=== PATIENT | male | born 1945 | race Caucasian/White ===

== ENCOUNTER → 2016-09-05 | Outpatient (CLI) | payer MEDICARE ==
[2015-10-23 11:10] VITALS: BP 136/84
[~2016-09-05] MED LIST: AMILORIDE HCL/H1 TAB PO; ASPIRIN E.C. 8181 MG PO; CHOLESTYRAM4 GM/5 GM PO; CYCLOBENZAPRINE10 M1 PO; DIFLUCAN200 M1 PO; FLOMAX0.4 MG PO; FORADIL INH; GABAPENTIN300 MG PO; LIPITOR20 MG PO; METOPROLOL TART25 MG PO; NORCO 325 MG-101 TAB PO; OMEPRAZOLE40 MG PO; OXY IH; PROVENTIL0.09 MG/A1; SYMBICORT1 AE3 IH; TUSSIONEX PENN115 ML PO
== END ==
LOC: RAD 14:26
DX: R07.1 Chest pain on breathing (principal); M54.5 Low back pain

== ENCOUNTER → 2016-10-10 | Outpatient (CLI) | payer MEDICARE ==
[2015-10-23 11:10] VITALS: BP 136/84
== END ==
LOC: RAD 14:54
DX: R05 Cough (principal); R51 Headache

== ENCOUNTER → 2016-10-21 | Outpatient (CLI) | payer MEDICARE ==
[2015-10-23 11:10] VITALS: BP 136/84
== END ==
LOC: LAB 14:26
DX: R06.02 Shortness of breath (principal)

== ENCOUNTER 2016-10-25 17:00 | Emergency (ER) | payer MEDICARE ==
[~2016-10-25] VITALS: Ht 172.7 cm; Wt 97.5 kg
[~2016-10-25 17:00] MED LIST changes: -ASPIRIN E.C. 8181 MG PO; -CYCLOBENZAPRINE10 M1 PO; -DIFLUCAN200 M1 PO; -SYMBICORT1 AE3 IH; -TUSSIONEX PENN115 ML PO
[2016-10-25] MEDS ORDERED: SYMBICORT1 AE3 IH (17:16)
[2016-10-25] MEDS ORDERED: ASPIRIN E.C. 8181 MG PO (17:16)
[2016-10-25] MEDS ORDERED: CYCLOBENZAPRINE10 M1 PO (21:19)
[2016-10-25] MEDS ORDERED: TUSSIONEX PENN115 ML PO (21:19)
[2016-10-25] MEDS ORDERED: DIFLUCAN200 M1 PO (21:19)
[2016-10-25 21:33] VITALS: BP 121/63
== END 2016-10-25 21:33 | disposition home or self-care (01) ==
LOC: ED 17:00
DX: R07.89 Other chest pain (principal); W19.XXXA Unspecified fall, initial encounter; B88.8 Other specified infestations; S16.1XXA Strain of muscle, fascia and tendon at neck level, initial encounter; R51 Headache; I10 Essential (primary) hypertension; J44.9 Chronic obstructive pulmonary disease, unspecified; J20.9 Acute bronchitis, unspecified; Z85.46 Personal history of malignant neoplasm of prostate; Z87.891 Personal history of nicotine dependence; K21.9 Gastro-esophageal reflux disease without esophagitis; J42 Unspecified chronic bronchitis
CPT/HCPCS: J1885; J7030

== ENCOUNTER 2016-11-17 16:00 | Outpatient (RCR) | payer MEDICARE ==
[~2016-11-17 16:00] MED LIST changes: +ASPIRIN E.C. 8181 MG PO; +CYCLOBENZAPRINE10 M1 PO; +DIFLUCAN200 M1 PO; +SYMBICORT1 AE3 IH; +TUSSIONEX PENN115 ML PO
== END 2016-12-20 13:30 | disposition home or self-care (01) ==
LOC: PT 16:00
DX: M54.6 Pain in thoracic spine (principal)

== ENCOUNTER → 2016-11-21 | Outpatient (CLI) | payer MEDICARE ==
[2016-10-25 21:33] VITALS: BP 121/63
== END ==
LOC: LAB 17:57
DX: R23.8 Other skin changes (principal)

== ENCOUNTER 2017-03-23 11:05 | Inpatient (IN) | payer MEDICARE ==
[~2017-03-23] VITALS: Ht 172.7 cm; Wt 95.6 kg
[~2017-03-23 11:05] MED LIST changes: +ACETAMINOPHEN-H1 TA1 PO; +ATIVAN 2MG2 MG PO; +ATORVASTATIN CA20 MG PO; +COLESTID 1GM1 G PO; +LOPRESSOR 225 MG/TAB PO; -METOPROLOL TART25 MG PO; +MODURETIC 5/501 TA1 PO; +NEURONTIN300 MG/CAP PO; +PROAIR HFA0.09 MG/AC IH
[2017-03-23 11:11] VITALS: BP 145/71
[2017-03-23 18:03] VITALS: BP 105/50
[2017-03-24 06:34] VITALS: BP 116/65
[2017-03-24 17:55] VITALS: BP 132/65
[2017-03-25 05:59] VITALS: BP 105/50
[2017-03-25 18:25] VITALS: BP 124/64
[2017-03-26 06:07] VITALS: BP 102/56
[2017-03-26 18:07] VITALS: BP 128/65
[2017-03-27 06:33] VITALS: BP 120/67
[2017-03-27 18:26] VITALS: BP 126/67
[2017-03-27 20:27] LABS: TROPONIN-I < 0.03 ng/mL (0.00-0.06)
[2017-03-27 20:31] LABS: CKMB ISOENZYME 0.2 ng/mL (0.6-3.5)
[2017-03-28 06:22] VITALS: BP 117/76
[2017-03-28 18:22] VITALS: BP 128/65
[2017-03-29 06:29] VITALS: BP 115/66
[2017-03-29 17:55] VITALS: BP 103/60
[2017-03-29 19:05] VITALS: BP 103/60
[2017-03-30 06:26] VITALS: BP 103/56
[2017-03-30] MEDS ORDERED: CEFDINIR300 MG PO (11:32)
[2017-03-30] MEDS ORDERED: IPRATROPIUM BROM3 M1 IH (11:33)
[2017-03-30] MEDS ORDERED: ALBUTEROL2.5 MG/3 M IH (11:33)
[2017-03-30] MEDS ORDERED: PERFOROMIS20 MCG/2 M IH (11:34)
[2017-03-30] MEDS ORDERED: BUDESONIDE0.5 MG/2 M IH (11:35)
[2017-03-30 12:43] VITALS: BP 115/69
== END 2017-03-30 12:55 | disposition home or self-care (01) | DRG 195 ==
LOC: MED/SURG 11:05
PROVIDERS: Nurse Practitioner Primary Care; ADMIT Physician Assistant
DX: J18.9 Pneumonia, unspecified organism (principal); R53.81 Other malaise; K21.9 Gastro-esophageal reflux disease without esophagitis; I10 Essential (primary) hypertension; G47.33 Obstructive sleep apnea (adult) (pediatric); G25.81 Restless legs syndrome; J43.9 Emphysema, unspecified; Z99.81 Dependence on supplemental oxygen
CPT/HCPCS: J0456; J0696; J1650; J7050

== ENCOUNTER 2017-06-16 17:26 | Emergency (ER) | payer MEDICARE ==
[~2017-06-16] VITALS: Wt 95.8 kg
[~2017-06-16 17:26] MED LIST changes: +ALBUTEROL2.5 MG/3 M IH; +BUDESONIDE0.5 MG/2 M IH; +CEFDINIR300 MG PO; +IPRATROPIUM BROM3 M1 IH; +PERFOROMIS20 MCG/2 M IH
[2017-06-16 18:21] LABS: HEMATOCRIT 41.3 % (42.0-52.0); HEMOGLOBIN 13.2 g/dL (13.5-18.0); MEAN CELL VOLUME 96 fl (78-100); MEAN CORPUSCULAR HEMOGLOBIN 31 pg (27-31); MEAN CORPUSCULAR HGB CONC 32 g/dL (33-37); MEAN PLATELET VOLUME 10.7 fl (7.4-10.4); PLATELET COUNT 141 K/mm3 (130-400); RED BLOOD COUNT 4.32 M/mm3 (4.20-5.60); RED CELL DISTRIBUTION WIDTH 14.8 % (11.5-14.5); WHITE BLOOD COUNT 3.7 K/mm3 (4.8-10.8)
[2017-06-16 18:31] LABS: ALBUMIN 4.4 g/dL (3.5-5.0); BUN/CREATININE RATIO 23.5 (6.0-26.0); CALCIUM 8.8 mg/dL (8.4-10.2); POTASSIUM 3.3 mmol/L (3.6-5.0); TOTAL BILIRUBIN 1.2 mg/dL (0.2-1.3); TOTAL PROTEIN 8.2 g/dL (6.3-8.2)
[2017-06-16 18:43] LABS: LYMPHOCYTE 26 % (20-51); MONOCYTE 9 % (3-10); NEUTROPHILS 62 % (42-75)
[2017-06-16] MEDS ORDERED: VALIUM 2MG T2 MG/TAB PO (18:46)
[2017-06-16] MEDS ORDERED: ZITHROMAX 250M250 MG PO (19:30)
[2017-06-16] MEDS ORDERED: PREDNISONE20 M1 PO (19:30)
[2017-06-16] MEDS ORDERED: POTASSIUM CHLO10 ME5 PO (19:36)
[2017-06-16 19:45] VITALS: BP 120/80
== END 2017-06-16 19:45 | disposition home or self-care (01) ==
LOC: ED 17:26
PROVIDERS: Family Medicine
DX: J44.1 Chronic obstructive pulmonary disease with (acute) exacerbation (principal); E87.6 Hypokalemia; I10 Essential (primary) hypertension; Z99.81 Dependence on supplemental oxygen; G47.30 Sleep apnea, unspecified; N40.0 Benign prostatic hyperplasia without lower urinary tract symptoms; Z87.891 Personal history of nicotine dependence; Z91.138 Patient's unintentional underdosing of medication regimen for other reason
CPT/HCPCS: J7512

== ENCOUNTER → 2017-06-23 | Outpatient (CLI) | payer MEDICARE ==
[2017-06-16 19:45] VITALS: BP 120/80
[~2017-06-23] MED LIST changes: +POTASSIUM CHLO10 ME5 PO; +PREDNISONE20 M1 PO; +VALIUM 2MG T2 MG/TAB PO; +ZITHROMAX 250M250 MG PO
[2017-06-23 10:14] LABS: BUN/CREATININE RATIO 26.6 (6.0-26.0); CALCIUM 9.5 mg/dL (8.4-10.2); POTASSIUM 3.7 mmol/L (3.6-5.0)
== END ==
LOC: LAB 09:40
PROVIDERS: Internal Medicine
DX: E11.9 Type 2 diabetes mellitus without complications (principal); I10 Essential (primary) hypertension

== ENCOUNTER → 2017-07-21 | Outpatient (CLI) | payer MEDICARE ==
[2017-07-21 17:12] LABS: BASO # 0.1 (0.02-0.10); EOS # 0.2 (0.04-0.40); EOS % 2.2 % (0.0-4.0); HEMATOCRIT 38.1 % (42.0-52.0); HEMOGLOBIN 11.8 g/dL (13.5-18.0); LYMPH# 1.4 (1.50-4.00); MEAN CELL VOLUME 99 fl (78-100); MEAN CORPUSCULAR HEMOGLOBIN 31 pg (27-31); MEAN CORPUSCULAR HGB CONC 31 g/dL (33-37); MEAN PLATELET VOLUME 10.7 fl (7.4-10.4); MONO # 0.8 (0.20-0.80); NEU # 5.2 (1.40-6.50); PLATELET COUNT 307 K/mm3 (130-400); RED BLOOD COUNT 3.86 M/mm3 (4.20-5.60); RED CELL DISTRIBUTION WIDTH 14.9 % (11.5-14.5); WHITE BLOOD COUNT 7.9 K/mm3 (4.8-10.8)
[2017-07-21 17:15] LABS: ALBUMIN 4.5 g/dL (3.5-5.0); CALCIUM 9.7 mg/dL (8.4-10.2); POTASSIUM 4.4 mmol/L (3.6-5.0); TOTAL BILIRUBIN 0.5 mg/dL (0.2-1.3); TOTAL PROTEIN 8.5 g/dL (6.3-8.2)
[2017-07-21 18:21] LABS: ERYTHROCYTE SEDIMENTATION RATE 67 mm/hr (0-20)
[2017-07-21 19:49] LABS: URINE APPEARANCE CLEAR; URINE BILIRUBIN NEGATIVE (NEGATIVE); URINE BLOOD NEGATIVE (NEGATIVE); URINE COLOR YELLOW; URINE GLUCOSE NEGATIVE (NEGATIVE); URINE KETONE NEGATIVE (NEGATIVE); URINE LEUKOCYTE ESTERASE NEGATIVE (NEGATIVE); URINE NITRATE NEGATIVE (NEGATIVE); URINE PROTEIN(semi-quant) NEGATIVE (NEGATIVE); URINE UROBILINOGEN NORMAL (NORMAL)
[2017-07-21 23:46] LABS: TESTOSTERONE 181 ng/dL (221-716)
== END ==
LOC: LAB 16:23
PROVIDERS: Internal Medicine
DX: E11.9 Type 2 diabetes mellitus without complications (principal); J45.909 Unspecified asthma, uncomplicated; E78.5 Hyperlipidemia, unspecified; E23.0 Hypopituitarism; D50.8 Other iron deficiency anemias; I25.10 Atherosclerotic heart disease of native coronary artery without angina pectoris; Z88.0 Allergy status to penicillin

== ENCOUNTER → 2017-10-27 | Outpatient (CLI) | payer MEDICARE ==
[2017-10-27 17:02] LABS: EOS # 0.2 (0.04-0.40); EOS % 2.5 % (0.0-4.0); HEMATOCRIT 40.6 % (42.0-52.0); HEMOGLOBIN 12.6 g/dL (13.5-18.0); LYMPH# 1.5 (1.50-4.00); MEAN CELL VOLUME 99 fl (78-100); MEAN CORPUSCULAR HEMOGLOBIN 31 pg (27-31); MEAN CORPUSCULAR HGB CONC 31 g/dL (33-37); MEAN PLATELET VOLUME 10.7 fl (7.4-10.4); MONO # 0.7 (0.20-0.80); NEU # 5.4 (1.40-6.50); PLATELET COUNT 184 K/mm3 (130-400); RED BLOOD COUNT 4.11 M/mm3 (4.20-5.60); RED CELL DISTRIBUTION WIDTH 14.4 % (11.5-14.5); WHITE BLOOD COUNT 7.7 K/mm3 (4.8-10.8)
[2017-10-27 17:16] LABS: ALBUMIN 4.6 g/dL (3.5-5.0); BUN/CREATININE RATIO 17.1 (6.0-26.0); CALCIUM 9.7 mg/dL (8.4-10.2); POTASSIUM 4.5 mmol/L (3.6-5.0); TOTAL BILIRUBIN 0.6 mg/dL (0.2-1.3); TOTAL PROTEIN 8.8 g/dL (6.3-8.2)
== END ==
LOC: LAB 16:48
PROVIDERS: Internal Medicine
DX: E11.9 Type 2 diabetes mellitus without complications (principal); I25.10 Atherosclerotic heart disease of native coronary artery without angina pectoris; G43.709 Chronic migraine without aura, not intractable, without status migrainosus

== ENCOUNTER → 2018-03-30 | Outpatient (CLI) | payer MEDICARE ==
[2018-03-30 12:34] LABS: ALBUMIN 4.3 g/dL (3.5-5.0); CALCIUM 9.6 mg/dL (8.4-10.2); POTASSIUM 4.5 mmol/L (3.6-5.0); TOTAL BILIRUBIN 0.6 mg/dL (0.2-1.3); TOTAL PROTEIN 7.6 g/dL (6.3-8.2)
[2018-03-30 13:38] LABS: EOS # 0.1 (0.04-0.40); EOS % 1.5 % (0.0-4.0); HEMATOCRIT 37.9 % (42.0-52.0); HEMOGLOBIN 11.8 g/dL (13.5-18.0); LYMPH# 1.6 (1.50-4.00); MEAN CELL VOLUME 101 fl (78-100); MEAN CORPUSCULAR HEMOGLOBIN 31 pg (27-31); MEAN CORPUSCULAR HGB CONC 31 g/dL (33-37); MONO # 0.6 (0.20-0.80); PLATELET COUNT 161 K/mm3 (130-400); RED BLOOD COUNT 3.77 M/mm3 (4.20-5.60); RED CELL DISTRIBUTION WIDTH 13.9 % (11.5-14.5); WHITE BLOOD COUNT 8.4 K/mm3 (4.8-10.8)
[2018-03-30 13:40] LABS: MEAN PLATELET VOLUME 12.1 fl (7.4-10.4)
== END ==
LOC: LAB 11:31
PROVIDERS: Internal Medicine
DX: E11.9 Type 2 diabetes mellitus without complications (principal); J43.1 Panlobular emphysema

== ENCOUNTER → 2018-04-12 | Outpatient (CLI) | payer MEDICARE ==
[~2018-04-12] VITALS: Ht 172.7 cm; Wt 100.0 kg
[~2018-04-12] MED LIST changes: +ATIVAN2 MG PO; +HYDROCODONE-AC118 ML PO; +HYDROCORT-PRAMOX4 GM RC; +LOMOTIL TAB 01 UDTAB; +TORSEMIDE10 M1 PO
[2018-04-12 14:30] VITALS: BP 155/75
[2018-04-12 14:49] LABS: EOS # 0.2 (0.04-0.40); EOS % 1.6 % (0.0-4.0); HEMOGLOBIN 12.1 g/dL (13.5-18.0); LYMPH# 1.8 (1.50-4.00); MEAN CELL VOLUME 100 fl (78-100); MEAN CORPUSCULAR HEMOGLOBIN 31 pg (27-31); MEAN CORPUSCULAR HGB CONC 31 g/dL (33-37); MEAN PLATELET VOLUME 11.6 fl (7.4-10.4); MONO # 0.7 (0.20-0.80); NEU # 6.5 (1.40-6.50); PLATELET COUNT 161 K/mm3 (130-400); RED BLOOD COUNT 3.92 M/mm3 (4.20-5.60); RED CELL DISTRIBUTION WIDTH 13.8 % (11.5-14.5); WHITE BLOOD COUNT 9.3 K/mm3 (4.8-10.8)
[2018-04-12 15:24] LABS: ALBUMIN 4.6 g/dL (3.5-5.0); CALCIUM 9.5 mg/dL (8.4-10.2); POTASSIUM 4.5 mmol/L (3.6-5.0); TOTAL BILIRUBIN 0.6 mg/dL (0.2-1.3); TOTAL PROTEIN 7.9 g/dL (6.3-8.2)
[2018-04-12 15:31] LABS: PROTHROMBIN TIME 9.6 SECONDS (9.0-12.0)
[2018-04-12 15:44] LABS: URINE APPEARANCE CLEAR; URINE BILIRUBIN NEGATIVE (NEGATIVE); URINE BLOOD NEGATIVE (NEGATIVE); URINE COLOR YELLOW; URINE GLUCOSE NEGATIVE (NEGATIVE); URINE KETONE NEGATIVE (NEGATIVE); URINE LEUKOCYTE ESTERASE NEGATIVE (NEGATIVE); URINE NITRATE NEGATIVE (NEGATIVE); URINE PROTEIN(semi-quant) NEGATIVE (NEGATIVE); URINE UROBILINOGEN NORMAL (NORMAL)
== END ==
LOC: AMSURD 14:16
PROVIDERS: Internal Medicine
DX: Z01.818 Encounter for other preprocedural examination (principal); M19.019 Primary osteoarthritis, unspecified shoulder

== ENCOUNTER → 2018-04-13 | Outpatient (CLI) | payer MEDICARE ==
[2018-04-12 14:30] VITALS: BP 155/75
== END ==
LOC: RAD 09:32
DX: I25.10 Atherosclerotic heart disease of native coronary artery without angina pectoris (principal); R09.89 Other specified symptoms and signs involving the circulatory and respiratory systems

== ENCOUNTER → 2018-04-27 | Outpatient (CLI) | payer MEDICARE ==
[2018-04-12 14:30] VITALS: BP 155/75
== END ==
LOC: CARDREHAB 08:07 → CARDLAB 09:28
DX: I25.10 Atherosclerotic heart disease of native coronary artery without angina pectoris (principal); R06.02 Shortness of breath; Z82.49 Family history of ischemic heart disease and other diseases of the circulatory system
CPT/HCPCS: A9500

== ENCOUNTER → 2018-05-03 | Outpatient (CLI) | payer MEDICARE ==
[2018-04-12 14:30] VITALS: BP 155/75
[2018-05-04 08:55] LABS: T3 TOTAL 93 ng/dL (87-178)
== END ==
LOC: LAB 14:10
PROVIDERS: Internal Medicine
DX: E03.9 Hypothyroidism, unspecified (principal)

== ENCOUNTER 2018-05-24 18:01 | Emergency (ER) | payer MEDICARE ==
[~2018-05-24] VITALS: Ht 172.7 cm; Wt 95.5 kg
[2018-05-24 19:25] LABS: BASO # 0.1 (0.02-0.10); EOS # 0.2 (0.04-0.40); HEMATOCRIT 37.4 % (42.0-52.0); HEMOGLOBIN 12.1 g/dL (13.5-18.0); MEAN CELL VOLUME 95 fl (78-100); MEAN CORPUSCULAR HEMOGLOBIN 31 pg (27-31); MEAN CORPUSCULAR HGB CONC 32 g/dL (33-37); MEAN PLATELET VOLUME 11.4 fl (7.4-10.4); MONO # 0.5 (0.20-0.80); NEU # 2.7 (1.40-6.50); PLATELET COUNT 140 K/mm3 (130-400); RED BLOOD COUNT 3.93 M/mm3 (4.20-5.60); RED CELL DISTRIBUTION WIDTH 14.1 % (11.5-14.5); WHITE BLOOD COUNT 4.6 K/mm3 (4.8-10.8)
[2018-05-24] MEDS ORDERED: ATIVAN 2MG2 MG PO (19:33)
[2018-05-24] MEDS ORDERED: LEVOTHYROXIN0.025 MG PO (19:33)
[2018-05-24] MEDS ORDERED: LORTAB 10/500 51 TAB PO (19:34)
[2018-05-24] MEDS ORDERED: NEURONTIN300 M1 PO (19:34)
[2018-05-24] MEDS ORDERED: FLOMAX0.4 MG PO (19:35)
[2018-05-24] MEDS ORDERED: PROAIR HFA0.09 MG/AC IH (19:35)
[2018-05-24] MEDS ORDERED: LIPITOR20 M2 PO (19:35)
[2018-05-24] MEDS ORDERED: LOPRESSOR 225 MG/TAB PO (19:35)
[2018-05-24 19:59] LABS: ALBUMIN 4.8 g/dL (3.5-5.0); POTASSIUM 4.2 mmol/L (3.6-5.0); TOTAL BILIRUBIN 0.8 mg/dL (0.2-1.3); TOTAL PROTEIN 8.1 g/dL (6.3-8.2)
[2018-05-24 21:15] VITALS: BP 136/77
[2018-05-24 21:21] LABS: URINE APPEARANCE CLEAR; URINE BILIRUBIN NEGATIVE (NEGATIVE); URINE BLOOD NEGATIVE (NEGATIVE); URINE COLOR YELLOW; URINE KETONE NEGATIVE (NEGATIVE); URINE LEUKOCYTE ESTERASE NEGATIVE (NEGATIVE); URINE NITRATE NEGATIVE (NEGATIVE); URINE PROTEIN(semi-quant) TRACE mg/dL (NEGATIVE); URINE UROBILINOGEN NORMAL (NORMAL)
[2018-05-26] MEDS ORDERED: LOPERAMIDE2 M2 PO (02:40)
[2018-05-27] MEDS ORDERED: CEFDINIR300 MG PO (10:42)
[2018-05-27] MEDS ORDERED: PREDNISONE20 MG PO (10:42)
== END 2018-05-24 21:15 | disposition other institution (70) ==
LOC: ED 18:01
PROVIDERS: Nurse Practitioner; Nurse Practitioner Family
DX: J43.9 Emphysema, unspecified (principal); R09.02 Hypoxemia; R11.2 Nausea with vomiting, unspecified; R19.7 Diarrhea, unspecified; Z99.81 Dependence on supplemental oxygen; R42 Dizziness and giddiness; H53.8 Other visual disturbances; I25.10 Atherosclerotic heart disease of native coronary artery without angina pectoris; I10 Essential (primary) hypertension; Z87.891 Personal history of nicotine dependence; E11.9 Type 2 diabetes mellitus without complications; E03.9 Hypothyroidism, unspecified; G47.33 Obstructive sleep apnea (adult) (pediatric); E78.5 Hyperlipidemia, unspecified; K21.9 Gastro-esophageal reflux disease without esophagitis; D50.9 Iron deficiency anemia, unspecified; Z86.79 Personal history of other diseases of the circulatory system; Z79.899 Other long term (current) drug therapy; Z88.0 Allergy status to penicillin
CPT/HCPCS: J7030; J7040

== ENCOUNTER → 2018-06-07 | Outpatient (CLI) | payer MEDICARE ==
[2018-05-27 11:16] VITALS: BP 129/67
[~2018-06-07] MED LIST changes: +LEVOTHYROXIN0.025 MG PO; +LIPITOR20 M2 PO; +LOPERAMIDE2 M2 PO; +LORTAB 10/500 51 TAB PO; +NEURONTIN300 M1 PO; +PREDNISONE20 MG PO
[2018-06-07 16:12] LABS: PROTHROMBIN TIME 9.2 SECONDS (9.0-12.0)
[2018-06-07 16:13] LABS: ALBUMIN 4.4 g/dL (3.5-5.0); POTASSIUM 4.2 mmol/L (3.6-5.0); TOTAL BILIRUBIN 0.7 mg/dL (0.2-1.3); TOTAL PROTEIN 7.4 g/dL (6.3-8.2)
[2018-06-07 16:30] LABS: EOS # 0.2 (0.04-0.40); EOS % 2.1 % (0.0-4.0); HEMOGLOBIN 12.1 g/dL (13.5-18.0); LYMPH# 1.6 (1.50-4.00); MEAN CELL VOLUME 98 fl (78-100); MEAN CORPUSCULAR HEMOGLOBIN 30 pg (27-31); MEAN CORPUSCULAR HGB CONC 31 g/dL (33-37); MEAN PLATELET VOLUME 11.6 fl (7.4-10.4); MONO # 0.6 (0.20-0.80); NEU # 5.6 (1.40-6.50); PLATELET COUNT 149 K/mm3 (130-400); RED BLOOD COUNT 3.99 M/mm3 (4.20-5.60); RED CELL DISTRIBUTION WIDTH 14.5 % (11.5-14.5); WHITE BLOOD COUNT 8.1 K/mm3 (4.8-10.8)
[2018-06-07 18:13] LABS: URINE APPEARANCE HAZY; URINE COLOR YELLOW; URINE KETONE NEGATIVE (NEGATIVE); URINE PROTEIN(semi-quant) TRACE mg/dL (NEGATIVE)
[2018-06-07 18:14] LABS: URINE BILIRUBIN NEGATIVE (NEGATIVE); URINE BLOOD TRACE (NEGATIVE); URINE LEUKOCYTE ESTERASE TRACE (NEGATIVE); URINE NITRATE NEGATIVE (NEGATIVE); URINE UROBILINOGEN NORMAL (NORMAL)
== END ==
LOC: LAB 15:27
PROVIDERS: Internal Medicine
DX: Z01.812 Encounter for preprocedural laboratory examination (principal); M19.019 Primary osteoarthritis, unspecified shoulder; E03.9 Hypothyroidism, unspecified

== ENCOUNTER → 2018-08-02 | Outpatient (CLI) | payer MEDICARE ==
[2018-05-27 11:16] VITALS: BP 129/67
[2018-08-02 12:15] LABS: EOS # 0.5 (0.04-0.40); HEMATOCRIT 33.7 % (42.0-52.0); HEMOGLOBIN 10.1 g/dL (13.5-18.0); LYMPH# 1.4 (1.50-4.00); MEAN CELL VOLUME 98 fl (78-100); MEAN CORPUSCULAR HEMOGLOBIN 29 pg (27-31); MEAN CORPUSCULAR HGB CONC 30 g/dL (33-37); MEAN PLATELET VOLUME 11.7 fl (7.4-10.4); MONO # 0.6 (0.20-0.80); NEU # 2.9 (1.40-6.50); PLATELET COUNT 154 K/mm3 (130-400); RED BLOOD COUNT 3.43 M/mm3 (4.20-5.60); RED CELL DISTRIBUTION WIDTH 14.2 % (11.5-14.5); WHITE BLOOD COUNT 5.4 K/mm3 (4.8-10.8)
[2018-08-02 12:19] LABS: EOS % 8.7 % (0.0-4.0)
[2018-08-02 12:30] LABS: ALBUMIN 4.5 g/dL (3.5-5.0); CALCIUM 9.7 mg/dL (8.4-10.2); POTASSIUM 4.6 mmol/L (3.6-5.0); TOTAL BILIRUBIN 0.6 mg/dL (0.2-1.3); TOTAL PROTEIN 7.7 g/dL (6.3-8.2)
== END ==
LOC: LAB 11:49
PROVIDERS: Internal Medicine
DX: E11.9 Type 2 diabetes mellitus without complications (principal); J43.1 Panlobular emphysema

== ENCOUNTER → 2018-09-11 | Outpatient (CLI) | payer MEDICARE ==
[2018-05-27 11:16] VITALS: BP 129/67
== END ==
LOC: RAD 09:46
DX: M16.12 Unilateral primary osteoarthritis, left hip (principal)

== ENCOUNTER 2019-01-14 12:17 | Emergency (ER) | payer MEDICARE ==
[~2019-01-14] VITALS: Ht 172.7 cm; Wt 95.5 kg
[2019-01-14 12:41] LABS: EOS # 0.4 (0.04-0.40); HEMATOCRIT 39.6 % (42.0-52.0); HEMOGLOBIN 12.4 g/dL (13.5-18.0); LYMPH# 1.8 (1.50-4.00); MEAN CELL VOLUME 97 fl (78-100); MEAN CORPUSCULAR HEMOGLOBIN 30 pg (27-31); MEAN CORPUSCULAR HGB CONC 31 g/dL (33-37); MEAN PLATELET VOLUME 11.7 fl (7.4-10.4); MONO # 0.8 (0.20-0.80); NEU # 3.5 (1.40-6.50); PLATELET COUNT 155 K/mm3 (130-400); RED BLOOD COUNT 4.09 M/mm3 (4.20-5.60); RED CELL DISTRIBUTION WIDTH 13.5 % (11.5-14.5); WHITE BLOOD COUNT 6.5 K/mm3 (4.8-10.8)
[2019-01-14 12:42] LABS: EOS % 5.7 % (0.0-4.0)
[2019-01-14 12:50] LABS: ALBUMIN 4.4 g/dL (3.4-4.8); POTASSIUM 4.2 mmol/L (3.5-5.1)
[2019-01-14 12:51] LABS: CALCIUM 9.9 mg/dL (8.3-10.5)
[2019-01-14 12:52] LABS: TOTAL PROTEIN 8.2 g/dL (6.2-8.1)
[2019-01-14 12:54] LABS: TOTAL BILIRUBIN 0.6 mg/dL (0.2-1.2)
[2019-01-14] MEDS ORDERED: MODURETIC 5/501 TA1 PO (13:02)
[2019-01-14] MEDS ORDERED: ASPIRIN E.C. 8181 MG (13:04)
[2019-01-14 14:01] LABS: URINE APPEARANCE CLEAR; URINE COLOR YELLOW
[2019-01-14 14:02] LABS: URINE BILIRUBIN NEGATIVE (NEGATIVE); URINE BLOOD NEGATIVE (NEGATIVE); URINE GLUCOSE NEGATIVE (NEGATIVE); URINE KETONE NEGATIVE (NEGATIVE); URINE LEUKOCYTE ESTERASE NEGATIVE (NEGATIVE); URINE MUCUS PRESENT (NOT PRESENT); URINE NITRATE NEGATIVE (NEGATIVE); URINE PROTEIN(semi-quant) NEGATIVE (NEGATIVE); URINE UROBILINOGEN NORMAL (NORMAL); URINE WBC 0-1 /hpf (0-3)
[2019-01-14] MEDS ORDERED: FLAGYL500 M1 PO (14:48)
[2019-01-14] MEDS ORDERED: CIPRO500 M1 PO (14:48)
[2019-01-14] MEDS ORDERED: ZOFRAN4 M2 PO (14:55)
[2019-01-14 16:02] VITALS: BP 134/64
== END 2019-01-14 15:01 | disposition home or self-care (01) ==
LOC: ED 12:17
PROVIDERS: Nurse Practitioner Primary Care
DX: R10.32 Left lower quadrant pain (principal); J44.9 Chronic obstructive pulmonary disease, unspecified; I10 Essential (primary) hypertension; K21.9 Gastro-esophageal reflux disease without esophagitis; Z86.73 Personal history of transient ischemic attack (TIA), and cerebral infarction without residual deficits; Z88.0 Allergy status to penicillin; Z98.890 Other specified postprocedural states; Z79.82 Long term (current) use of aspirin
CPT/HCPCS: J2270; J2405; Q9967

== ENCOUNTER 2019-01-17 14:31 | Emergency (ER) | payer MEDICARE ==
[~2019-01-17] VITALS: Ht 172.7 cm; Wt 95.5 kg
[~2019-01-17 14:31] MED LIST changes: +ASPIRIN E.C. 8181 MG; +CIPRO500 M1 PO; +FLAGYL500 M1 PO; +ZOFRAN4 M2 PO
[2019-01-17 15:16] LABS: EOS # 0.4 (0.04-0.40); HEMATOCRIT 39.5 % (42.0-52.0); HEMOGLOBIN 12.5 g/dL (13.5-18.0); LYMPH# 1.6 (1.50-4.00); MEAN CELL VOLUME 96 fl (78-100); MEAN CORPUSCULAR HEMOGLOBIN 30 pg (27-31); MEAN CORPUSCULAR HGB CONC 32 g/dL (33-37); MEAN PLATELET VOLUME 11.7 fl (7.4-10.4); MONO # 0.5 (0.20-0.80); PLATELET COUNT 150 K/mm3 (130-400); RED BLOOD COUNT 4.13 M/mm3 (4.20-5.60); RED CELL DISTRIBUTION WIDTH 13.3 % (11.5-14.5); WHITE BLOOD COUNT 5.7 K/mm3 (4.8-10.8)
[2019-01-17 15:17] LABS: EOS % 7.4 % (0.0-4.0)
[2019-01-17 15:33] LABS: POTASSIUM 3.9 mmol/L (3.5-5.1)
[2019-01-17 15:34] LABS: ALBUMIN 4.3 g/dL (3.4-4.8)
[2019-01-17 15:38] LABS: TOTAL BILIRUBIN 0.5 mg/dL (0.2-1.2)
[2019-01-17 17:10] LABS: URINE APPEARANCE CLEAR; URINE BILIRUBIN NEGATIVE (NEGATIVE); URINE BLOOD NEGATIVE (NEGATIVE); URINE COLOR YELLOW; URINE GLUCOSE NEGATIVE (NEGATIVE); URINE KETONE NEGATIVE (NEGATIVE); URINE LEUKOCYTE ESTERASE NEGATIVE (NEGATIVE); URINE NITRATE NEGATIVE (NEGATIVE); URINE PROTEIN(semi-quant) NEGATIVE (NEGATIVE); URINE UROBILINOGEN NORMAL (NORMAL); URINE WBC 0-1 /hpf (0-3)
[2019-01-17 17:11] LABS: URINE MUCUS PRESENT (NOT PRESENT)
[2019-01-17] MEDS ORDERED: DIFLUCAN150 M1 PO (18:47)
[2019-01-17] MEDS ORDERED: CIPRO500 M1 PO (18:48)
[2019-01-17 19:30] VITALS: BP 153/96
== END 2019-01-17 19:30 | disposition home or self-care (01) ==
LOC: ED 14:31
PROVIDERS: Nurse Practitioner Family
DX: N45.3 Epididymo-orchitis (principal); B37.9 Candidiasis, unspecified; I10 Essential (primary) hypertension; J43.9 Emphysema, unspecified; K21.9 Gastro-esophageal reflux disease without esophagitis; Z79.82 Long term (current) use of aspirin; Z86.73 Personal history of transient ischemic attack (TIA), and cerebral infarction without residual deficits; Z87.891 Personal history of nicotine dependence; Z99.81 Dependence on supplemental oxygen; Z88.0 Allergy status to penicillin
CPT/HCPCS: A4216; J0696; J1885; J2405; J7030

== ENCOUNTER → 2019-01-25 | Outpatient (CLI) | payer MEDICARE ==
[2019-01-17 19:30] VITALS: BP 153/96
[~2019-01-25] MED LIST changes: -ASPIRIN E.C. 8181 MG; +DIFLUCAN150 M1 PO
[2019-01-25 14:10] LABS: EOS # 0.3 (0.04-0.40); HEMATOCRIT 38.9 % (42.0-52.0); HEMOGLOBIN 12.1 g/dL (13.5-18.0); LYMPH# 1.7 (1.50-4.00); MEAN CELL VOLUME 96 fl (78-100); MEAN CORPUSCULAR HEMOGLOBIN 30 pg (27-31); MEAN CORPUSCULAR HGB CONC 31 g/dL (33-37); MEAN PLATELET VOLUME 11.5 fl (7.4-10.4); MONO # 0.7 (0.20-0.80); NEU # 3.2 (1.40-6.50); PLATELET COUNT 149 K/mm3 (130-400); RED BLOOD COUNT 4.05 M/mm3 (4.20-5.60); RED CELL DISTRIBUTION WIDTH 13.2 % (11.5-14.5)
[2019-01-25 15:15] LABS: EOS % 5.7 % (0.0-4.0); ERYTHROCYTE SEDIMENTATION RATE 60 mm/hr (0-20)
[2019-01-25 16:18] LABS: ALBUMIN 4.1 g/dL (3.4-4.8); POTASSIUM 4.6 mmol/L (3.5-5.1)
[2019-01-25 16:19] LABS: CALCIUM 9.9 mg/dL (8.3-10.5)
[2019-01-25 16:20] LABS: TOTAL PROTEIN 7.6 g/dL (6.2-8.1)
[2019-01-25 16:22] LABS: TOTAL BILIRUBIN 0.3 mg/dL (0.2-1.2)
== END ==
LOC: LAB 13:54
PROVIDERS: Internal Medicine
DX: R10.84 Generalized abdominal pain (principal)

== ENCOUNTER 2019-01-26 22:26 | Emergency (ER) | payer MEDICARE ==
[~2019-01-26] VITALS: Ht 172.7 cm; Wt 95.5 kg
[2019-01-27 01:55] VITALS: BP 139/63
== END 2019-01-27 01:55 | disposition home or self-care (01) ==
LOC: ED 22:26
DX: E11.65 Type 2 diabetes mellitus with hyperglycemia (principal); J44.9 Chronic obstructive pulmonary disease, unspecified; Z90.79 Acquired absence of other genital organ(s); Z98.890 Other specified postprocedural states; Z79.82 Long term (current) use of aspirin

== ENCOUNTER → 2019-02-01 | Outpatient (CLI) | payer MEDICARE ==
[2019-01-27 01:55] VITALS: BP 139/63
[2019-02-01 13:31] LABS: EOS # 0.4 (0.04-0.40); EOS % 4.9 % (0.0-4.0); HEMATOCRIT 40.3 % (42.0-52.0); HEMOGLOBIN 12.6 g/dL (13.5-18.0); LYMPH# 2.5 (1.50-4.00); MEAN CELL VOLUME 96 fl (78-100); MEAN CORPUSCULAR HEMOGLOBIN 30 pg (27-31); MEAN CORPUSCULAR HGB CONC 31 g/dL (33-37); MEAN PLATELET VOLUME 11.5 fl (7.4-10.4); MONO # 0.6 (0.20-0.80); NEU # 4.8 (1.40-6.50); PLATELET COUNT 193 K/mm3 (130-400); RED CELL DISTRIBUTION WIDTH 13.5 % (11.5-14.5); WHITE BLOOD COUNT 8.5 K/mm3 (4.8-10.8)
[2019-02-01 14:03] LABS: ALBUMIN 4.3 g/dL (3.4-4.8); POTASSIUM 4.6 mmol/L (3.5-5.1)
[2019-02-01 14:04] LABS: CALCIUM 9.6 mg/dL (8.3-10.5)
[2019-02-01 14:05] LABS: TOTAL PROTEIN 7.5 g/dL (6.2-8.1)
[2019-02-01 14:07] LABS: TOTAL BILIRUBIN 0.3 mg/dL (0.2-1.2)
[2019-02-01 16:01] LABS: ERYTHROCYTE SEDIMENTATION RATE 14 mm/hr (0-20)
== END ==
LOC: RAD 12:35 → LAB 13:18
PROVIDERS: Internal Medicine
DX: R10.84 Generalized abdominal pain (principal); R19.7 Diarrhea, unspecified
CPT/HCPCS: Q9967

== ENCOUNTER → 2019-03-01 | Outpatient (CLI) | payer MEDICARE ==
[2019-03-01 08:26] LABS: ALBUMIN 4.3 g/dL (3.4-4.8); POTASSIUM 4.5 mmol/L (3.5-5.1)
[2019-03-01 08:27] LABS: CALCIUM 9.8 mg/dL (8.3-10.5)
[2019-03-01 08:29] LABS: TOTAL PROTEIN 7.2 g/dL (6.2-8.1)
[2019-03-01 08:30] LABS: TOTAL BILIRUBIN 0.4 mg/dL (0.2-1.2)
== END ==
LOC: LAB 08:05
PROVIDERS: Internal Medicine
DX: E11.9 Type 2 diabetes mellitus without complications (principal)

== ENCOUNTER → 2019-10-17 | Outpatient (CLI) | payer MEDICARE ==
[2019-10-17 12:30] LABS: POTASSIUM 5.2 mmol/L (3.5-5.1)
[2019-10-17 12:31] LABS: ALBUMIN 4.5 g/dL (3.4-4.8)
[2019-10-17 12:32] LABS: CALCIUM 10.2 mg/dL (8.3-10.5)
[2019-10-17 12:35] LABS: TOTAL BILIRUBIN 0.6 mg/dL (0.2-1.2)
[2019-10-17 12:39] LABS: MAGNESIUM 2.08 mg/dL (1.60-2.60)
[2019-10-17 12:50] LABS: EOS % 0.1 % (0.0-4.0); HEMATOCRIT 37.4 % (42.0-52.0); HEMOGLOBIN 11.9 g/dL (13.5-18.0); LYMPH# 1.2 (1.50-4.00); MEAN CELL VOLUME 95 fl (78-100); MEAN CORPUSCULAR HEMOGLOBIN 30 pg (27-31); MEAN CORPUSCULAR HGB CONC 32 g/dL (33-37); MONO # 0.7 (0.20-0.80); NEU # 7.9 (1.40-6.50); PLATELET COUNT 200 K/mm3 (130-400); RED BLOOD COUNT 3.92 M/mm3 (4.20-5.60); RED CELL DISTRIBUTION WIDTH 13.9 % (11.5-14.5); WHITE BLOOD COUNT 9.9 K/mm3 (4.8-10.8)
[2019-10-17 12:58] LABS: MEAN PLATELET VOLUME 12.5 fl (7.4-10.4)
[2019-10-17 14:08] LABS: ERYTHROCYTE SEDIMENTATION RATE 38 mm/hr (0-20)
[2019-10-17 22:16] LABS: TESTOSTERONE 79 ng/dL (221-716)
== END ==
LOC: LAB 11:43
PROVIDERS: Internal Medicine
DX: Z12.11 Encounter for screening for malignant neoplasm of colon (principal); I25.10 Atherosclerotic heart disease of native coronary artery without angina pectoris; E11.9 Type 2 diabetes mellitus without complications; E23.0 Hypopituitarism; I10 Essential (primary) hypertension; D50.8 Other iron deficiency anemias; E03.9 Hypothyroidism, unspecified; R97.20 Elevated prostate specific antigen [PSA]

== ENCOUNTER → 2019-10-22 | Outpatient (CLI) | payer MEDICARE ==
[2019-10-22 16:49] LABS: URINE WBC 0 /hpf (0-3)
[2019-10-22 16:54] LABS: POTASSIUM 4.2 mmol/L (3.5-5.1)
[2019-10-22 16:55] LABS: CALCIUM 9.4 mg/dL (8.3-10.5)
[2019-10-22 17:27] LABS: URINE APPEARANCE HAZY; URINE COLOR YELLOW
[2019-10-22 17:28] LABS: URINE BILIRUBIN NEGATIVE (NEGATIVE); URINE BLOOD NEGATIVE (NEGATIVE); URINE KETONE NEGATIVE (NEGATIVE); URINE LEUKOCYTE ESTERASE NEGATIVE (NEGATIVE); URINE NITRATE NEGATIVE (NEGATIVE); URINE PROTEIN(semi-quant) NEGATIVE (NEGATIVE); URINE UROBILINOGEN NORMAL (NORMAL)
[2019-10-22 17:32] LABS: URINE MUCUS PRESENT (NOT PRESENT)
== END ==
LOC: LAB 15:38
PROVIDERS: Internal Medicine
DX: Z12.11 Encounter for screening for malignant neoplasm of colon (principal); E11.9 Type 2 diabetes mellitus without complications; K91.1 Postgastric surgery syndromes; I10 Essential (primary) hypertension; D50.9 Iron deficiency anemia, unspecified; I25.10 Atherosclerotic heart disease of native coronary artery without angina pectoris; E23.0 Hypopituitarism

== ENCOUNTER → 2020-01-21 | Outpatient (CLI) | payer MEDICARE ==
[2020-01-21 13:49] LABS: ALBUMIN 4.5 g/dL (3.4-4.8)
[2020-01-21 13:50] LABS: POTASSIUM 4.8 mmol/L (3.5-5.1)
[2020-01-21 13:51] LABS: CALCIUM 9.3 mg/dL (8.3-10.5)
[2020-01-21 13:52] LABS: TOTAL PROTEIN 7.3 g/dL (6.2-8.1)
[2020-01-21 13:54] LABS: TOTAL BILIRUBIN 0.3 mg/dL (0.2-1.2)
[2020-01-21 14:20] LABS: EOS % 0.1 % (0.0-4.0); HEMATOCRIT 46.4 % (42.0-52.0); HEMOGLOBIN 14.3 g/dL (13.5-18.0); LYMPH# 1.8 (1.50-4.00); MEAN CELL VOLUME 96 fl (78-100); MEAN CORPUSCULAR HEMOGLOBIN 30 pg (27-31); MEAN CORPUSCULAR HGB CONC 31 g/dL (33-37); MEAN PLATELET VOLUME 11.7 fl (7.4-10.4); MONO # 1.1 (0.20-0.80); PLATELET COUNT 170 K/mm3 (130-400); RED BLOOD COUNT 4.82 M/mm3 (4.20-5.60); RED CELL DISTRIBUTION WIDTH 13.7 % (11.5-14.5)
== END ==
LOC: LAB 13:12
PROVIDERS: Internal Medicine
DX: Z01.818 Encounter for other preprocedural examination (principal); E11.9 Type 2 diabetes mellitus without complications; E23.0 Hypopituitarism; H28 Cataract in diseases classified elsewhere

== ENCOUNTER → 2020-01-29 | Outpatient (CLI) | payer MEDICARE | LOC: LAB 14:04 | DX: E11.9 Type 2 diabetes mellitus without complications (principal) ==

== ENCOUNTER → 2020-05-25 | Outpatient (CLI) | payer MEDICARE ==
[2020-05-25 14:36] LABS: EOS # 0.2 (0.04-0.40); EOS % 2.5 % (0.0-4.0); HEMATOCRIT 50.5 % (42.0-52.0); HEMOGLOBIN 15.5 g/dL (13.5-18.0); LYMPH# 2.2 (1.50-4.00); MEAN CELL VOLUME 95 fl (78-100); MEAN CORPUSCULAR HEMOGLOBIN 29 pg (27-31); MEAN CORPUSCULAR HGB CONC 31 g/dL (33-37); MEAN PLATELET VOLUME 11.4 fl (7.4-10.4); MONO # 0.8 (0.20-0.80); NEU # 4.7 (1.40-6.50); PLATELET COUNT 146 K/mm3 (130-400); RED BLOOD COUNT 5.33 M/mm3 (4.20-5.60); RED CELL DISTRIBUTION WIDTH 14.3 % (11.5-14.5); WHITE BLOOD COUNT 7.9 K/mm3 (4.8-10.8)
[2020-05-25 14:44] LABS: POTASSIUM 4.7 mmol/L (3.5-5.1)
[2020-05-25 14:45] LABS: ALBUMIN 4.6 g/dL (3.4-4.8)
[2020-05-25 14:46] LABS: CALCIUM 10.3 mg/dL (8.3-10.5)
[2020-05-25 14:47] LABS: TOTAL PROTEIN 7.9 g/dL (6.2-8.1)
[2020-05-25 14:49] LABS: TOTAL BILIRUBIN 0.7 mg/dL (0.2-1.2)
== END ==
LOC: LAB 14:12
PROVIDERS: Internal Medicine
DX: I10 Essential (primary) hypertension (principal); E78.5 Hyperlipidemia, unspecified; E11.9 Type 2 diabetes mellitus without complications; K90.9 Intestinal malabsorption, unspecified

== ENCOUNTER 2020-06-20 14:25 | Emergency (ER) | payer MEDICARE ==
[~2020-06-20] VITALS: Ht 172.7 cm; Wt 102.7 kg
[2020-06-20] MEDS ORDERED: COLESTIPOL1 GM PO (15:16)
[2020-06-20] MEDS ORDERED: LOW DOSE ASPIRI81 M1 PO (15:17)
[2020-06-20 15:20] LABS: EOS # 0.2 (0.04-0.40); EOS % 1.8 % (0.0-4.0); HEMATOCRIT 51.6 % (42.0-52.0); HEMOGLOBIN 15.9 g/dL (13.5-18.0); LYMPH# 2.4 (1.50-4.00); MEAN CELL VOLUME 95 fl (78-100); MEAN CORPUSCULAR HEMOGLOBIN 29 pg (27-31); MEAN CORPUSCULAR HGB CONC 31 g/dL (33-37); MEAN PLATELET VOLUME 11.5 fl (7.4-10.4); MONO # 0.7 (0.20-0.80); NEU # 5.2 (1.40-6.50); PLATELET COUNT 134 K/mm3 (130-400); RED BLOOD COUNT 5.44 M/mm3 (4.20-5.60); RED CELL DISTRIBUTION WIDTH 14.7 % (11.5-14.5); WHITE BLOOD COUNT 8.5 K/mm3 (4.8-10.8)
[2020-06-20] MEDS ORDERED: REVATIO20 MG PO (15:26)
[2020-06-20] MEDS ORDERED: LANTUS SOLOS100 U/ML SC (15:26)
[2020-06-20] MEDS ORDERED: GLUCOPHAGE XR500 M2 PO (15:26)
[2020-06-20] MEDS ORDERED: TESTOSTERONE200 MG IM (15:27)
[2020-06-20 15:30] LABS: ALBUMIN 4.2 g/dL (3.4-4.8)
[2020-06-20 15:31] LABS: POTASSIUM 4.1 mmol/L (3.5-5.1); SODIUM 138 mmol/L (136-145)
[2020-06-20 15:32] LABS: CALCIUM 9.4 mg/dL (8.3-10.5)
[2020-06-20 15:33] LABS: D-DIMER 0.18 mg/L FEU (0.15-0.50); GLUCOSE 223 mg/dL (75-110); TOTAL PROTEIN 7.3 g/dL (6.2-8.1)
[2020-06-20] MEDS ORDERED: ZYRTEC10 M3 PO (15:33)
[2020-06-20] MEDS ORDERED: CLARITIN10 M1 PO (15:33)
[2020-06-20 15:34] LABS: CARBON DIOXIDE 27 mmol/L (23-31)
[2020-06-20 15:35] LABS: TOTAL BILIRUBIN 0.6 mg/dL (0.2-1.2)
[2020-06-20 15:38] LABS: AST-SGOT 22 U/L (5-34)
[2020-06-20 15:39] LABS: ALT/SGPT 57 U/L (0-55)
[2020-06-20 15:53] LABS: URINE APPEARANCE CLEAR; URINE BILIRUBIN NEGATIVE (NEGATIVE); URINE BLOOD NEGATIVE (NEGATIVE); URINE COLOR YELLOW; URINE GLUCOSE 50 mg/dL mg/dL (NEGATIVE); URINE KETONE NEGATIVE (NEGATIVE); URINE LEUKOCYTE ESTERASE NEGATIVE (NEGATIVE); URINE MUCUS PRESENT (NOT PRESENT); URINE NITRATE NEGATIVE (NEGATIVE); URINE PROTEIN(semi-quant) NEGATIVE (NEGATIVE); URINE UROBILINOGEN NORMAL (NORMAL); URINE WBC 0-1 /hpf (0-3)
[2020-06-20 15:56] LABS: TROPONIN-I < 0.03 ng/mL (<0.030)
[2020-06-20 21:31] VITALS: BP 144/74
[2020-06-20 21:36] LABS: PROTHROMBIN TIME 10.3 SECONDS (9.0-12.0)
== END 2020-06-20 21:31 | disposition short-term general hospital (02) ==
LOC: ED 14:25
PROVIDERS: Nurse Practitioner; Physician Assistant
DX: I20.0 Unstable angina (principal); R61 Generalized hyperhidrosis; E11.9 Type 2 diabetes mellitus without complications; Z20.822 Contact with and (suspected) exposure to COVID-19; Z79.82 Long term (current) use of aspirin; Z79.4 Long term (current) use of insulin
CPT/HCPCS: J1644; J2270

== ENCOUNTER → 2020-07-08 | Outpatient (CLI) | payer MEDICARE ==
[~2020-07-08] VITALS: Ht 172.7 cm; Wt 102.3 kg
[~2020-07-08] MED LIST changes: +CLARITIN10 M1 PO; +COLESTIPOL1 GM PO; +EUTHYROX25 MCG PO; +GLUCOPHAGE XR500 M2 PO; +KETOCONAZOLE 1120 ML TP; +LANTUS SOLOS100 U/ML SC; +LANTUS SOLOS100 U/ML SQ; -LORTAB 10/500 51 TAB PO; +LOW DOSE ASPIRI81 M1 PO; +MAPAP500 M2 PO; +NOVAPLUS DE200 MG/ML IM; +PERFOROMIS20 MCG/21 IH; +PIOGLITAZONE HC15 MG PO; +REVATIO20 MG PO; +TIZANIDINE2 MG PO; +VITAMIN D21250 MC1 PO; +ZYRTEC10 M3 PO
[2020-07-08 09:04] VITALS: BP 161/72
== END ==
LOC: AMSURD 08:52
DX: R00.8 Other abnormalities of heart beat (principal)

== ENCOUNTER → 2020-08-25 | Outpatient (CLI) | payer MEDICARE ==
[2020-07-08 09:04] VITALS: BP 161/72
[~2020-08-25] MED LIST changes: +AZITHROMYCIN 250MGPK PO; +NEURONTIN300 MG/CAP
== END ==
LOC: LAB 14:08
DX: E11.9 Type 2 diabetes mellitus without complications (principal); K90.9 Intestinal malabsorption, unspecified

== ENCOUNTER 2020-11-23 14:00 | Emergency (ER) | payer MEDICARE ==
[~2020-11-23 14:00] MED LIST changes: -AZITHROMYCIN 250MGPK PO; -NEURONTIN300 MG/CAP
[2020-11-23] MEDS ORDERED: NEURONTIN300 MG/CAP (14:14)
[2020-11-23 14:39] LABS: BASO # 0.05 (0.02-0.10); EOS # 0.14 (0.04-0.40); EOS % 1.7 % (0.0-4.0); HEMATOCRIT 54.3 % (42.0-52.0); HEMOGLOBIN 17.4 g/dL (13.5-18.0); LYMPH# 2.18 (1.50-4.00); MEAN CELL VOLUME 97 fl (78-100); MEAN CORPUSCULAR HEMOGLOBIN 31 pg (27-31); MEAN CORPUSCULAR HGB CONC 32 g/dL (33-37); MEAN PLATELET VOLUME 10.5 fl (7.4-10.4); MONO # 0.64 (0.20-0.80); NEU # 5.27 (1.40-6.50); PLATELET COUNT 148 K/mm3 (130-400); RED BLOOD COUNT 5.58 M/mm3 (4.20-5.60); RED CELL DISTRIBUTION WIDTH 13.2 % (11.5-14.5); WHITE BLOOD COUNT 8.3 K/mm3 (4.8-10.8)
[2020-11-23 14:48] LABS: ALBUMIN 4.4 g/dL (3.4-4.8)
[2020-11-23 14:49] LABS: POTASSIUM 4.4 mmol/L (3.5-5.1); SODIUM 137 mmol/L (136-145)
[2020-11-23 14:50] LABS: CALCIUM 9.7 mg/dL (8.3-10.5)
[2020-11-23 14:51] LABS: GLUCOSE 131 mg/dL (75-110); TOTAL PROTEIN 7.9 g/dL (6.2-8.1)
[2020-11-23 14:52] LABS: CARBON DIOXIDE 26 mmol/L (23-31)
[2020-11-23 14:53] LABS: PARTIAL THROMBOPLASTIN TIME 22.4 SECONDS (21.0-32.0); PROTHROMBIN TIME 9.7 SECONDS (9.0-12.0); TOTAL BILIRUBIN 0.8 mg/dL (0.2-1.2)
[2020-11-23 14:56] LABS: AST-SGOT 23 U/L (5-34)
[2020-11-23 14:58] LABS: ALT/SGPT 46 U/L (0-55)
[2020-11-23 15:04] LABS: TROPONIN-I < 0.03 ng/mL (<0.030)
[2020-11-23 16:46] LABS: URINE APPEARANCE CLEAR; URINE BILIRUBIN NEGATIVE (NEGATIVE); URINE COLOR YELLOW; URINE GLUCOSE NEGATIVE (NEGATIVE); URINE KETONE NEGATIVE (NEGATIVE); URINE PROTEIN(semi-quant) NEGATIVE (NEGATIVE)
[2020-11-23 16:47] LABS: URINE BLOOD NEGATIVE (NEGATIVE); URINE LEUKOCYTE ESTERASE NEGATIVE (NEGATIVE); URINE MUCUS PRESENT (NOT PRESENT); URINE NITRATE NEGATIVE (NEGATIVE); URINE UROBILINOGEN NORMAL (NORMAL)
[2020-11-23] MEDS ORDERED: AZITHROMYCIN 250MGPK PO (17:02)
[2020-11-23 17:52] VITALS: BP 147/75
== END 2020-11-23 18:00 | disposition home or self-care (01) ==
LOC: ED 14:00
PROVIDERS: Nurse Practitioner
DX: J22 Unspecified acute lower respiratory infection (principal); E03.9 Hypothyroidism, unspecified; J43.9 Emphysema, unspecified; G50.0 Trigeminal neuralgia; F41.9 Anxiety disorder, unspecified; Z87.891 Personal history of nicotine dependence; Z79.51 Long term (current) use of inhaled steroids; Z79.4 Long term (current) use of insulin; Z79.899 Other long term (current) drug therapy; Z20.822 Contact with and (suspected) exposure to COVID-19

== ENCOUNTER → 2020-12-16 | Outpatient (CLI) | payer MEDICARE ==
[~2020-12-16] MED LIST changes: +AZITHROMYCIN 250MGPK PO; +NEURONTIN300 MG/CAP
== END ==
LOC: LAB 15:44
DX: R05 Cough (principal); Z20.822 Contact with and (suspected) exposure to COVID-19

== ENCOUNTER → 2021-01-18 | Outpatient (CLI) | payer MEDICARE | LOC: LAB 17:33 | DX: U07.1 COVID-19 (principal) ==

== ENCOUNTER 2021-02-23 10:23 | Emergency (ER) | payer MEDICARE ==
[~2021-02-23] VITALS: Ht 172.7 cm; Wt 100.9 kg
[2021-02-23 11:28] LABS: URINE APPEARANCE CLEAR; URINE BILIRUBIN NEGATIVE (NEGATIVE); URINE COLOR YELLOW; URINE GLUCOSE 50 mg/dL mg/dL (NEGATIVE); URINE KETONE NEGATIVE (NEGATIVE); URINE PROTEIN(semi-quant) TRACE mg/dL (NEGATIVE)
[2021-02-23 11:29] LABS: URINE BLOOD NEGATIVE (NEGATIVE); URINE LEUKOCYTE ESTERASE NEGATIVE (NEGATIVE); URINE NITRATE NEGATIVE (NEGATIVE); URINE UROBILINOGEN NORMAL (NORMAL)
[2021-02-23 11:57] VITALS: BP 144/62
== END 2021-02-23 11:55 | disposition home or self-care (01) ==
LOC: ED 10:23
PROVIDERS: Nurse Practitioner
DX: S20.212A Contusion of left front wall of thorax, initial encounter (principal); S80.212A Abrasion, left knee, initial encounter; S80.211A Abrasion, right knee, initial encounter; S90.812A Abrasion, left foot, initial encounter; F41.9 Anxiety disorder, unspecified; N40.0 Benign prostatic hyperplasia without lower urinary tract symptoms; Z79.899 Other long term (current) drug therapy; W01.0XXA Fall on same level from slipping, tripping and stumbling without subsequent striking against object, initial encounter

== ENCOUNTER → 2021-03-08 | Outpatient (CLI) | payer MEDICARE ==
[2021-03-08 16:58] LABS: ALT/SGPT 51 U/L (0-55); AST-SGOT 20 U/L (5-34)
== END ==
LOC: LAB 16:06
PROVIDERS: Dermatology MOHS-Micrographic Surgery
DX: Z79.899 Other long term (current) drug therapy (principal)

== ENCOUNTER → 2021-03-25 | Outpatient (CLI) | payer MEDICARE ==
[2021-03-25 15:42] LABS: BASO # 0.03 K/mm3 (0.02-0.10); EOS # 0.16 K/mm3 (0.04-0.40); EOS % 2.1 % (0.0-4.0); HEMATOCRIT 49.7 % (42.0-52.0); HEMOGLOBIN 15.6 g/dL (13.5-18.0); LYMPH# 2.58 K/mm3 (1.50-4.00); MEAN CELL VOLUME 99 fl (78-100); MEAN CORPUSCULAR HEMOGLOBIN 31 pg (27-31); MEAN CORPUSCULAR HGB CONC 31 g/dL (33-37); MEAN PLATELET VOLUME 10.9 fl (7.4-10.4); MONO # 0.69 K/mm3 (0.20-0.80); NEU # 4.07 K/mm3 (1.40-6.50); PLATELET COUNT 166 K/mm3 (130-400); RED CELL DISTRIBUTION WIDTH 13.4 % (11.5-14.5); WHITE BLOOD COUNT 7.6 K/mm3 (4.8-10.8)
[2021-03-25 15:49] LABS: ALBUMIN 4.4 g/dL (3.4-4.8); POTASSIUM 5.3 mmol/L (3.5-5.1)
[2021-03-25 15:50] LABS: CALCIUM 10.6 mg/dL (8.3-10.5)
[2021-03-25 15:52] LABS: TOTAL PROTEIN 8.2 g/dL (6.2-8.1)
[2021-03-25 15:54] LABS: TOTAL BILIRUBIN 0.8 mg/dL (0.2-1.2)
[2021-03-25 22:23] LABS: TESTOSTERONE 257 ng/dL (221-716)
== END ==
LOC: LAB 15:18
PROVIDERS: Internal Medicine
DX: K90.9 Intestinal malabsorption, unspecified (principal); E11.9 Type 2 diabetes mellitus without complications; R00.8 Other abnormalities of heart beat; I25.10 Atherosclerotic heart disease of native coronary artery without angina pectoris; E23.0 Hypopituitarism

== ENCOUNTER → 2021-04-12 | Outpatient (CLI) | payer MEDICARE | LOC: LAB 12:47 | DX: G45.3 Amaurosis fugax (principal) ==

== ENCOUNTER → 2021-04-16 | Outpatient (CLI) | payer MEDICARE | LOC: VAS 10:54 → RAD 10:54 | DX: G45.9 Transient cerebral ischemic attack, unspecified (principal) ==

== ENCOUNTER → 2021-05-03 | Outpatient (CLI) | payer MEDICARE ==
[2021-05-03 13:05] LABS: ALBUMIN 4.5 g/dL (3.4-4.8)
[2021-05-03 13:06] LABS: POTASSIUM 5.1 mmol/L (3.5-5.1)
[2021-05-03 13:07] LABS: CALCIUM 9.6 mg/dL (8.3-10.5)
[2021-05-03 13:08] LABS: TOTAL PROTEIN 8.2 g/dL (6.2-8.1)
[2021-05-03 13:10] LABS: TOTAL BILIRUBIN 0.9 mg/dL (0.2-1.2)
== END ==
LOC: RAD 10:30 → LAB 10:39 → VAS 10:39
PROVIDERS: Internal Medicine
DX: G45.3 Amaurosis fugax (principal); E11.9 Type 2 diabetes mellitus without complications

== ENCOUNTER → 2021-09-21 | Outpatient (CLI) | payer MEDICARE ==
[2021-09-21 15:14] LABS: BASO # 0.06 K/mm3 (0.02-0.10); EOS # 0.16 K/mm3 (0.04-0.40); EOS % 2.3 % (0.0-4.0); HEMATOCRIT 47.8 % (42.0-52.0); HEMOGLOBIN 15.3 g/dL (13.5-18.0); LYMPH# 2.76 K/mm3 (1.50-4.00); MEAN CELL VOLUME 97 fl (78-100); MEAN CORPUSCULAR HEMOGLOBIN 31 pg (27-31); MEAN CORPUSCULAR HGB CONC 32 g/dL (33-37); MEAN PLATELET VOLUME 11.2 fl (7.4-10.4); MONO # 0.54 K/mm3 (0.20-0.80); NEU # 3.52 K/mm3 (1.40-6.50); PLATELET COUNT 153 K/mm3 (130-400); RED BLOOD COUNT 4.92 M/mm3 (4.20-5.60); RED CELL DISTRIBUTION WIDTH 13.3 % (11.5-14.5); WHITE BLOOD COUNT 7.1 K/mm3 (4.8-10.8)
[2021-09-21 15:21] LABS: POTASSIUM 4.4 mmol/L (3.5-5.1)
[2021-09-21 15:22] LABS: ALBUMIN 4.4 g/dL (3.4-4.8)
[2021-09-21 15:23] LABS: CALCIUM 9.9 mg/dL (8.3-10.5)
[2021-09-21 15:24] LABS: TOTAL PROTEIN 7.9 g/dL (6.2-8.1)
[2021-09-21 15:26] LABS: TOTAL BILIRUBIN 0.7 mg/dL (0.2-1.2)
== END ==
LOC: LAB 14:57
PROVIDERS: Internal Medicine
DX: E53.8 Deficiency of other specified B group vitamins (principal); G45.3 Amaurosis fugax; G45.9 Transient cerebral ischemic attack, unspecified; J43.9 Emphysema, unspecified; E11.9 Type 2 diabetes mellitus without complications; E78.5 Hyperlipidemia, unspecified; K90.9 Intestinal malabsorption, unspecified; E55.9 Vitamin D deficiency, unspecified; E03.9 Hypothyroidism, unspecified

== ENCOUNTER → 2021-12-23 | Outpatient (CLI) | payer MEDICARE ==
[2021-12-23 15:52] LABS: BASO # 0.05 K/mm3 (0.02-0.10); EOS # 0.16 K/mm3 (0.04-0.40); HEMATOCRIT 47.1 % (42.0-52.0); HEMOGLOBIN 14.8 g/dL (13.5-18.0); LYMPH# 3.02 K/mm3 (1.50-4.00); MEAN CELL VOLUME 97 fl (78-100); MEAN CORPUSCULAR HEMOGLOBIN 30 pg (27-31); MEAN CORPUSCULAR HGB CONC 31 g/dL (33-37); MONO # 0.63 K/mm3 (0.20-0.80); NEU # 4.05 K/mm3 (1.40-6.50); PLATELET COUNT 169 K/mm3 (130-400); RED BLOOD COUNT 4.87 M/mm3 (4.20-5.60); RED CELL DISTRIBUTION WIDTH 12.7 % (11.5-14.5); WHITE BLOOD COUNT 7.9 K/mm3 (4.8-10.8)
[2021-12-23 15:57] LABS: ALBUMIN 4.6 g/dL (3.4-4.8)
[2021-12-23 15:58] LABS: POTASSIUM 5.3 mmol/L (3.5-5.1)
[2021-12-23 16:00] LABS: TOTAL PROTEIN 8.2 g/dL (6.2-8.1)
[2021-12-23 16:02] LABS: TOTAL BILIRUBIN 0.8 mg/dL (0.2-1.2)
[2021-12-23 16:07] LABS: MAGNESIUM 2.05 mg/dL (1.60-2.60)
== END ==
LOC: LAB 15:32
PROVIDERS: Internal Medicine
DX: E53.8 Deficiency of other specified B group vitamins (principal); E11.9 Type 2 diabetes mellitus without complications; G45.3 Amaurosis fugax; G45.9 Transient cerebral ischemic attack, unspecified; J43.9 Emphysema, unspecified; E78.5 Hyperlipidemia, unspecified

== ENCOUNTER → 2023-08-09 | Outpatient (CLI) | payer MEDICARE ==
[~2023-08-09] MED LIST changes: +CLOPIDOGREL75 M2 PO; +GOOD SENSE ASPI81 M1 PO
== END ==
LOC: RAD 10:52
DX: H53.9 Unspecified visual disturbance (principal)

== ENCOUNTER → 2023-08-10 | Outpatient (CLI) | payer MEDICARE ==
[~2023-08-10] MED LIST changes: +Gadoterate 20 ML VIAL IV ONE
== END ==
LOC: RAD 15:15
DX: G31.9 Degenerative disease of nervous system, unspecified (principal); H53.9 Unspecified visual disturbance
CPT/HCPCS: A9575

== ENCOUNTER → 2024-02-15 | Outpatient (CLI) | payer MEDICARE ==
[~2024-02-15] MED LIST changes: -Gadoterate 20 ML VIAL IV ONE
[2024-02-15 16:09] LABS: HEMATOCRIT 40.3 % (42.0-52.0); HEMOGLOBIN 12.8 g/dL (13.5-18.0); MEAN CELL VOLUME 96 fl (78-100); MEAN CORPUSCULAR HEMOGLOBIN 31 pg (27-31); MEAN CORPUSCULAR HGB CONC 32 g/dL (33-37); MEAN PLATELET VOLUME 11.4 fl (7.4-10.4); PLATELET COUNT 175 K/mm3 (130-400); RED CELL DISTRIBUTION WIDTH 13.4 % (11.5-14.5); WHITE BLOOD COUNT 11.3 K/mm3 (4.8-10.8)
[2024-02-15 16:18] LABS: ALBUMIN 4.6 g/dL (3.4-4.8)
[2024-02-15 16:19] LABS: CALCIUM 10.7 mg/dL (8.3-10.5)
[2024-02-15 16:22] LABS: TOTAL BILIRUBIN 0.7 mg/dL (0.2-1.2)
[2024-02-15 16:26] LABS: LYMPHOCYTE 57 % (20-51); MONOCYTE 3 % (3-10); NEUTROPHILS 38 % (42-75)
[2024-02-15 16:27] LABS: MAGNESIUM 2.01 mg/dL (1.60-2.60)
[2024-02-16 00:27] LABS: TESTOSTERONE 1018 ng/dL (221-716)
== END ==
LOC: LAB 15:42
PROVIDERS: Internal Medicine
DX: Z12.5 Encounter for screening for malignant neoplasm of prostate (principal); E03.9 Hypothyroidism, unspecified; I10 Essential (primary) hypertension; E78.5 Hyperlipidemia, unspecified; K90.9 Intestinal malabsorption, unspecified; E11.9 Type 2 diabetes mellitus without complications; E23.0 Hypopituitarism

== ENCOUNTER → 2024-02-21 | Outpatient (CLI) | payer MEDICARE ==
[2024-02-21 16:41] LABS: URINE APPEARANCE CLEAR (CLEAR); URINE COLOR YELLOW (YELLOW)
[2024-02-21 16:52] LABS: URINE BILIRUBIN NEGATIVE (NEGATIVE); URINE BLOOD NEGATIVE (NEGATIVE); URINE GLUCOSE TRACE (NEGATIVE); URINE KETONE TRACE (NEGATIVE); URINE LEUKOCYTE ESTERASE NEGATIVE (NEGATIVE); URINE NITRATE NEGATIVE (NEGATIVE); URINE PROTEIN(semi-quant) NEGATIVE (NEGATIVE)
== END ==
LOC: LAB 16:12
PROVIDERS: Internal Medicine
DX: Z12.5 Encounter for screening for malignant neoplasm of prostate (principal); E11.9 Type 2 diabetes mellitus without complications; E03.9 Hypothyroidism, unspecified; I10 Essential (primary) hypertension; E78.5 Hyperlipidemia, unspecified; K90.9 Intestinal malabsorption, unspecified; E23.0 Hypopituitarism

== ENCOUNTER → 2024-02-22 | Outpatient (CLI) | payer MEDICARE ==
[2024-02-22 15:17] LABS: HEMATOCRIT 38.6 % (42.0-52.0); HEMOGLOBIN 12.5 g/dL (13.5-18.0); MEAN CELL VOLUME 96 fl (78-100); MEAN CORPUSCULAR HEMOGLOBIN 31 pg (27-31); MEAN CORPUSCULAR HGB CONC 32 g/dL (33-37); MEAN PLATELET VOLUME 10.9 fl (7.4-10.4); PLATELET COUNT 161 K/mm3 (130-400); RED BLOOD COUNT 4.04 M/mm3 (4.20-5.60); RED CELL DISTRIBUTION WIDTH 13.3 % (11.5-14.5); WHITE BLOOD COUNT 11.1 K/mm3 (4.8-10.8)
[2024-02-22 15:32] LABS: PH-URINE 5.5 (5.0 - 8.0); URINE APPEARANCE CLEAR (CLEAR); URINE BILIRUBIN NEGATIVE (NEGATIVE); URINE BLOOD NEGATIVE (NEGATIVE); URINE COLOR YELLOW (YELLOW); URINE GLUCOSE 2+ (NEGATIVE); URINE KETONE NEGATIVE (NEGATIVE); URINE LEUKOCYTE ESTERASE NEGATIVE (NEGATIVE); URINE MUCUS PRESENT (NOT PRESENT); URINE NITRATE NEGATIVE (NEGATIVE); URINE PROTEIN(semi-quant) NEGATIVE (NEGATIVE); URINE WBC 0-1 /hpf (0-3)
[2024-02-22 15:55] LABS: BAND 3 % (0-10); LYMPHOCYTE 63 % (20-51); MONOCYTE 5 % (3-10); NEUTROPHILS 27 % (42-75)
== END ==
LOC: LAB 14:51
PROVIDERS: Internal Medicine
DX: D72.829 Elevated white blood cell count, unspecified (principal); R31.29 Other microscopic hematuria

== ENCOUNTER → 2024-05-01 | Outpatient (CLI) | payer MEDICARE ==
[~2024-05-01] MED LIST changes: +AMLODIPINE BESYL5 MG PO; +METFORMIN ER500 MG PO
== END ==
LOC: LAB 14:09
DX: D72.829 Elevated white blood cell count, unspecified (principal)

== ENCOUNTER → 2024-05-06 | Outpatient (CLI) | payer MEDICARE ==
[~2024-05-06] MED LIST changes: +Iohexol 300 - 100 ML VIAL IV ONE
== END ==
LOC: RAD 08:58
DX: D72.829 Elevated white blood cell count, unspecified (principal); N20.0 Calculus of kidney; D73.89 Other diseases of spleen; I77.810 Thoracic aortic ectasia; R16.1 Splenomegaly, not elsewhere classified
CPT/HCPCS: Q9967

== ENCOUNTER 2024-06-21 14:43 | Emergency (ER) | payer MEDICARE ==
[~2024-06-21] VITALS: Wt 95.5 kg
[~2024-06-21 14:43] MED LIST changes: -Iohexol 300 - 100 ML VIAL IV ONE; +KETOROLAC10 MG PO
[2024-06-21 15:36] LABS: HEMATOCRIT 36.3 % (42.0-52.0); HEMOGLOBIN 11.2 g/dL (13.5-18.0); MEAN CELL VOLUME 100 fl (78-100); MEAN CORPUSCULAR HEMOGLOBIN 31 pg (27-31); MEAN CORPUSCULAR HGB CONC 31 g/dL (33-37); MEAN PLATELET VOLUME 10.8 fl (7.4-10.4); PLATELET COUNT 158 K/mm3 (130-400); RED BLOOD COUNT 3.64 M/mm3 (4.20-5.60); RED CELL DISTRIBUTION WIDTH 13.8 % (11.5-14.5); WHITE BLOOD COUNT 11.3 K/mm3 (4.8-10.8)
[2024-06-21 15:43] LABS: ALBUMIN 4.5 g/dL (3.4-4.8)
[2024-06-21 15:45] LABS: CALCIUM 9.6 mg/dL (8.3-10.5)
[2024-06-21 15:46] LABS: TOTAL PROTEIN 8.3 g/dL (6.2-8.1)
[2024-06-21 15:48] LABS: TOTAL BILIRUBIN 0.5 mg/dL (0.2-1.2)
[2024-06-21] MEDS ORDERED: PREDNISONE20 M1 PO (16:27)
[2024-06-21] MEDS ORDERED: ZITHROMAX 250M250 MG PO (16:27)
[2024-06-21] MEDS ORDERED: PROAIR HFA0.09 MG/AC IH (16:28)
[2024-06-21] MEDS ORDERED: Azithromycin 250 MG TAB PO ONE (16:30)
[2024-06-21] MEDS ORDERED: predniSONE 20 MG TAB PO ONE (16:30)
[2024-06-21 16:47] VITALS: BP 119/62
[2024-06-21 16:55] LABS: LYMPHOCYTE 66 % (20-51); MONOCYTE 3 % (3-10); NEUTROPHILS 27 % (42-75)
== END 2024-06-21 16:47 | disposition home or self-care (01) ==
LOC: ED 14:43
PROVIDERS: Family Medicine
DX: J43.9 Emphysema, unspecified (principal); Z87.891 Personal history of nicotine dependence; Z99.81 Dependence on supplemental oxygen; Z79.02 Long term (current) use of antithrombotics/antiplatelets; Z79.82 Long term (current) use of aspirin
CPT/HCPCS: J7512

== ENCOUNTER → 2024-07-02 | Outpatient (CLI) | payer MEDICARE | LOC: RAD 15:29 | DX: R06.00 Dyspnea, unspecified (principal) ==

== ENCOUNTER → 2024-07-22 | Outpatient (CLI) | payer MEDICARE ==
[2024-07-22 08:46] LABS: HEMOGLOBIN 11.3 g/dL (13.5-18.0); MEAN CELL VOLUME 98 fl (78-100); MEAN CORPUSCULAR HEMOGLOBIN 31 pg (27-31); MEAN CORPUSCULAR HGB CONC 31 g/dL (33-37); MEAN PLATELET VOLUME 10.7 fl (7.4-10.4); PLATELET COUNT 164 K/mm3 (130-400); RED BLOOD COUNT 3.68 M/mm3 (4.20-5.60); WHITE BLOOD COUNT 18.3 K/mm3 (4.8-10.8)
[2024-07-22 09:01] LABS: ALBUMIN 4.4 g/dL (3.4-4.8)
[2024-07-22 09:02] LABS: CALCIUM 10.3 mg/dL (8.3-10.5)
[2024-07-22 09:03] LABS: TOTAL PROTEIN 8.2 g/dL (6.2-8.1)
[2024-07-22 09:05] LABS: TOTAL BILIRUBIN 0.7 mg/dL (0.2-1.2)
[2024-07-22 09:34] LABS: LYMPHOCYTE 61 % (20-51); MONOCYTE 3 % (3-10); NEUTROPHILS 34 % (42-75)
== END ==
LOC: LAB 07:15
PROVIDERS: Internal Medicine
DX: D72.829 Elevated white blood cell count, unspecified (principal)

== ENCOUNTER → 2024-07-22 | Day surgery (SDC) | payer MEDICARE | LOC: MSO 06-17 10:14 | DX: D04.4 Carcinoma in situ of skin of scalp and neck (principal) ==

== ENCOUNTER → 2024-09-09 | Outpatient (CLI) | payer MEDICARE ==
[~2024-09-09] MED LIST changes: +Iohexol 300 - 100 ML VIAL IV ONE; +NS 100 ML IV SCH
== END ==
LOC: RAD 09:20
DX: D35.02 Benign neoplasm of left adrenal gland (principal); D73.89 Other diseases of spleen; D72.829 Elevated white blood cell count, unspecified; R16.1 Splenomegaly, not elsewhere classified
CPT/HCPCS: Q9967